=== PATIENT | male | born 1980 | race Caucasian/White ===

== ENCOUNTER 2016-06-14 18:59 | Emergency (ER) | payer SELFPAY ==
[~2016-06-14] VITALS: Ht 193 cm; Wt 100.0 kg
[~2016-06-14 18:59] MED LIST: Z.0.NO CURRENT MEDS
[2016-06-14 19:00] VITALS: BP 128/75; PULSE 106; RESP 20; TEMP 99.3; O2SAT 98
--- NOTE | 2016-06-14 19:38 | PD ---
HPI Chief Complaint: Cold / Flu Symptoms Time Seen by Provider: 19:36 Travel History International Travel<30 days: No Contact w/Intl Traveler<30days: No Traveled to known affect area: No History of Present Illness HPI 36-year-old white male presents to emergency department with a 4 day history of flulike symptoms. He states that he's been having intermittent fever, chills, headache, runny nose, congestion, sinus pressure, cough, myalgias and arthralgias. He said decreased energy and generalized weakness. He denies any ear pain or sore throat. No shortness of breath or wheezing. No nausea vomiting. No abdominal pain or diarrhea. No dysuria or frequency. Symptoms are moderate. Alleviated with ibuprofen History Past Medical Histgory Medical History: Denies Significant Hx Tetanus Vaccination: < 5 Years Hx Cancer: No Past Surgical History Narrative Surgical Lumbar discectomy Social History Alcohol Use: Yes (RARE) Tobacco Use: Yes (1PPD-12 YEARS) Allergies-Medications (Allergen,Severity, Reaction): Coded Allergies: No Known Allergies (Verified , 06/14/16) Reported Meds & Prescriptions Reported Meds & Active Scripts Active Reported No Current Meds (Miscellaneous Medication) Misc Review of Systems Except as stated in HPI: all other systems reviewed are Neg Physical Exam Narrative GENERAL: Well-developed, well-nourished in no acute distress. Nontoxic appearing. HEAD: Normocephalic, atraumatic. EYES: Pupils equal round and reactive. Extraocular motions intact. No scleral icterus. No injection or drainage. ENT: TMs clear without erythema. The external auditory canals clear. Nose: clear . Posterior pharynx is pink and moist. No tonsillar edema or exudate. Uvula midline. Airway patent. NECK: Trachea midline.Supple, nontender, moves head freely. No central bony tenderness or spasm. CARDIOVASCULAR: Regular rate and rhythm without murmurs, gallops, or rubs. RESPIRATORY: Clear to auscultation. Breath sounds equal bilaterally. No wheezes , rales, or rhonchi. GASTROINTESTINAL: Abdomen soft, non-tender, nondistended. No hepato-splenomegaly , or palpable masses. No guarding. EXTREMITIES: No clubbing, cyanosis, or edema. No joint tenderness, effusion, or edema noted. BACK: Nontender without deformity or crepitance. No flank tenderness. Data Data Last Documented VS Vital Signs Date Time Temp Pulse Resp B/P Pulse Ox O2 Delivery O2 Flow Rate FiO2 06/14/16 19:00 99.3 106 20 128/75 98 Room Air MDM Medical Screen Exam Complete: Yes Emergency Medical Condition: No Differential Diagnosis MDM: High Differential diagnoses: Pneumonia, bronchitis, URI, asthma, RAD, legionnaire's disease, SARS, ARDS, influenza, bronchiolitis, RSV,PE,CHF Narrative Course A medical screening exam was performed: At the time of evaluation the presenting medical condition was determined not to be of an emergent nature. The patient was given the option of receiving additional care, but declined. Patient was given options for additional community resources from which to obtain care. The Patient Has Been advised to seek medical attention for their presenting complaint. The patient has been advised to return to the ER at any time if an emergent condition develops. Primary Impression: Encounter for medical screening examination Condition: Stable Michael Ford Jun 14, 2016 19:38
== END 2016-06-14 20:24 | disposition left against medical advice (07) ==
LOC: NEPK 18:59
DX: R50.9 Fever, unspecified (principal)
CPT/HCPCS: 99281